=== PATIENT | female | born 2005 | race Caucasian/White ===

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

== ENCOUNTER 2023-02-24 15:54 | Outpatient (REF) | payer MEDICAID, SELFPAY ==
[2023-02-24 16:44] LABS: Anion Gap 7.4 mmol/L (3-11); BUN 15 mg/dL (7-18); CO2 25.6 mmol/L (21.0-32.0); CREATININE 0.9 mg/dL (0.55-1.02); Calcium 9.6 mg/dL (8.5-10.1); Chloride 104 mmol/L (98-107); Estimated GFR 94.44 (mL/min/1.73m2); Glucose 93 mg/dL (74-106); Sodium 137 mmol/L (136-145)
== END 2023-02-24 15:55 | disposition home or self-care (01) ==
LOC: NCHCN 15:54
PROVIDERS: PCP Nurse Practitioner Family; Visit Provider Nurse Practitioner Family
DX: Z51.81 Encounter for therapeutic drug level monitoring (principal)
CPT/HCPCS: 80048

== ENCOUNTER 2023-04-24 20:28 | Outpatient (CLI) | payer MEDICAID, SELFPAY ==
[2023-04-24 17:00] LABS: Anion Gap 8.9 mmol/L (3-11); BUN 20 mg/dL (7-18); CO2 26.1 mmol/L (21.0-32.0); CREATININE 0.8 mg/dL (0.55-1.02); Calcium 9.6 mg/dL (8.5-10.1); Chloride 103 mmol/L (98-107); Estimated GFR 108.11 (mL/min/1.73m2); Glucose 88 mg/dL (74-106); Potassium 3.7 mmol/L (3.5-5.1); Sodium 138 mmol/L (136-145)
== END 2023-04-24 20:29 | disposition home or self-care (01) ==
LOC: LBO 20:28
PROVIDERS: PCP Nurse Practitioner Family; Visit Provider Nurse Practitioner Family
DX: Z02.89 Encounter for other administrative examinations (principal); R79.89 Other specified abnormal findings of blood chemistry; L70.9 Acne, unspecified
CPT/HCPCS: 36415; 80048

== ENCOUNTER 2023-06-26 17:35 | Outpatient (CLI) | payer MEDICAID, SELFPAY ==
[2023-06-26 17:07] LABS: ALT 22 U/L (14-59); AST 20 U/L (15-37); Albumin 4.1 g/dL (3.4-5.0); Alkaline Phosphatase 69 U/L (46-116); Anion Gap 11.9 mmol/L (3-11); BUN 12 mg/dL (7-18); Bilirubin, Total 0.4 mg/dL (0.2-1.0); CO2 24.1 mmol/L (21.0-32.0); CREATININE 0.8 mg/dL (0.55-1.02); Calcium 9.9 mg/dL (8.5-10.1); Chloride 103 mmol/L (98-107); Estimated GFR 108.11 (mL/min/1.73m2); Glucose 97 mg/dL (74-106); Potassium 3.9 mmol/L (3.5-5.1); Sodium 139 mmol/L (136-145); TSH (W/Ref FT4) 2.63 uIU/mL (0.36-3.74); Total Protein 8.1 g/dL (6.4-8.2)
--- OUTSIDE RECORDS SUMMARY | 2023-06-26 17:39 | XMS_ITS | CCD ---
Author Name Unknown Address [address] [place] [id number] Organization Unknown Address [address] [place] [id number] Care Team Providers Care Clearing Distribution Clerk Name Role Phone CATHLEEN FONG Attending Physician [phone] Vital Signs Unknown or Not Available. Allergies Unknown or Not Available. Procedures Unknown or Not Available. History of Immunizations Unknown or Not Available. Problems Unknown or Not Available. Results Unknown or Not Available. Active Medications Unknown or Not Available. Medications Administered During Visit Unknown or Not Available. Encounters Encounter Diagnosis Diagnosis Code Start Date Pain in left knee [id number] 02/24/2023 Social History Unknown or Not Available. Patient Decision Aids Unknown or Not Available. Discharge Instructions You were admitted to [facility] on 02/24/2023 13:20 with a principal diagnosis of Pain in left knee You were discharged from [facility] on 03/03/2023 11:50 Should you have any questions prior to discharge, please contact a member of your healthcare team. If you have left the hospital and have any questions, please contact your primary care physician. Chief Complaint and Reason For Visit Unknown or Not Available. Function Status Unknown or Not Available. Plan of Care Unknown or Not Available. Referral/Transition of Care Unknown or Not Available.
[2023-06-26 22:16] LABS: FSH 5.3 mIU/mL (See Note); LH 20.1 mIU/mL (See Note)
== END 2023-06-26 17:36 | disposition home or self-care (01) ==
LOC: LBO 17:36
PROVIDERS: PCP Nurse Practitioner Family; Visit Provider Obstetrics & Gynecology
DX: N93.8 Other specified abnormal uterine and vaginal bleeding (principal)
CPT/HCPCS: 36415; 80053; 83001; 83002; 84443

== ENCOUNTER → 2023-07-03 01:20 | Outpatient (CLI) | payer MEDICAID, SELFPAY ==
--- NOTE | 2023-07-03 14:38 | DI.US_ITS ---
Exam(s) US PELVIS TRANSVAGINAL EXAM: US PELVIS TRANSVAGINAL CLINICAL HISTORY: anatomy,dysfunction uterine bleeding,n93.8 TECHNIQUE: Transabdominal and transvaginal imaging was performed using standard protocol. COMPARISON: No exams were available for comparison FINDINGS: Bladder is unremarkable. UTERUS: Anteverted. 5.9 x 3.7 x 4.7 cm Endometrium: 5 mm Myometrium: Unremarkable. Cervix: Small amount of fluid in the cervical canal consistent with current menses. OVARIES: Right: Cyst or mass: None. Left: Cyst or mass: None. DOPPLER: Color: Symmetric and uniform flow to both ovaries. No hyperemia. CUL-DE-SAC: Free fluid: None. IMPRESSION: 1. Normal-appearing uterus with endometrial stripe within normal limits. 2. Unremarkable bilateral ovaries. DATA REPOSITORY:
== END ==
PROVIDERS: PCP Nurse Practitioner Family; Visit Provider Obstetrics & Gynecology
DX: N93.8 Other specified abnormal uterine and vaginal bleeding (principal)
CPT/HCPCS: 76830; 76856

== ENCOUNTER 2024-01-08 08:17 | Outpatient (REF) | payer MEDICAID, SELFPAY ==
[2024-01-08 14:31] LABS: Abs Immature Grans 0.01 10^3/uL (0.0-0.06); Absolute Basophil Count 0.04 10^3/uL (0.0-0.2); Absolute Eosinophil Count 0.07 10^3/uL (0.0-0.7); Absolute Lymphocyte Count 1.93 10^3/uL (1.2-3.4); Absolute Monocyte Count 0.49 10^3/uL (0.1-0.8); Absolute Neutrophil Count 2.94 10^3/uL (1.2-6.7); Basophils % 0.7 %; Eosinophils % 1.3 %; HCT 39.8 % (36.0-46.0); HGB 12.9 g/dL (11.2-15.7); Immature Grans % 0.2 %; Lymphocytes % 35.2 %; MCH 28.7 pg (27.0-33.0); MCHC 32.4 % (32.0-36.0); MCV 89 fL (80-95); MPV 11.5 fL (8.0-11.0); Monocytes % 8.9 %; Neutrophils % 53.7 %; Platelet Count 313 10^3/uL (130-400); RBC 4.49 10^6/uL (3.93-5.22); RDW-SD 42.4 fL; WBC 5.48 10^3/uL (4.4-10.8)
[2024-01-08 17:03] LABS: TSH (W/Ref FT4) 1.89 uIU/mL (0.36-3.74)
== END 2024-01-08 08:18 | disposition home or self-care (01) ==
LOC: NCHCN 08:17
PROVIDERS: PCP Nurse Practitioner Family; Visit Provider Family Medicine
DX: R59.0 Localized enlarged lymph nodes (principal); Z13.29 Encounter for screening for other suspected endocrine disorder
CPT/HCPCS: 84443; 85025

== ENCOUNTER 2024-01-13 01:28 | Outpatient (CLI) | payer MEDICAID, SELFPAY ==
--- NOTE | 2024-01-13 | DI.US_ITS ---
Exam(s) US THYROID EXAM: US THYROID CLINICAL HISTORY: THYROID DISORDER SCREENING, Z13.29. TECHNIQUE: Ultrasound thyroid performed using standard protocol. COMPARISON: No exams were available for comparison FINDINGS: ISTHMUS: 1 mm RIGHT LOBE: Size: 4.1.0.9 x 1.8 cm Echogenicity: Normal. Vascularity: Normal. Nodules: 2 tiny colloid cysts. TR 1. LEFT LOBE: Size: 4.3 x 0.9 x 1.5 cm Echogenicity: Normal. Vascularity: Normal. Nodules: None. OTHER FINDINGS: No evidence of adenopathy or other neck mass. No visible soft tissue edema. IMPRESSION: Normal size thyroid gland. Incidental tiny colloid cysts. No follow-up recommended. DATA REPOSITORY:
== END 2024-01-13 01:48 ==
LOC: DI 01:28
PROVIDERS: PCP Nurse Practitioner Family; Visit Provider Family Medicine
DX: Z13.29 Encounter for screening for other suspected endocrine disorder (principal)
CPT/HCPCS: 76536

== ENCOUNTER 2024-09-07 10:10 | Outpatient (REF) | payer OTHER, SELFPAY ==
--- NOTE | 2024-09-07 09:40 | PAPFT_PTH ---
PATIENT: Mirlande Burrows LOC: [facility] U#:[id number] AGE/SX: 19/F ROOM: RE09/07/[address]: Martha Rubi DO : 2005 BED: DIS: 09/07/2024 SPEC #: [id number] RECD: 09/07/24 13:03 STATUS: DENISE REQ #: [id number] HENRI: 09/07/24 09:[address]: Martha Rubi DEPT: [facility] Cytology RECD BY: Lisa Harmon ENTERED: 09/07/24 13:03 SP TYPE: PAPFT OTHR DR: Desiree Malhotra Tissues: 1 - CX/ENDOCX FOR PAP SMEARS Procedures: PAP THIN PREP/[facility] Screening HPV DNA PROBE Comments: [id number] (HPV 16 & 18/45) (CHLAMYDIA/GC)
[2024-09-08 12:41] LABS: Chlamydia Result Negative (Negative); GC Result Negative (Negative)
== END 2024-09-07 10:11 | disposition home or self-care (01) ==
LOC: LBN 10:10
PROVIDERS: PCP Nurse Practitioner Family; Visit Provider Obstetrics & Gynecology
DX: Z12.4 Encounter for screening for malignant neoplasm of cervix (principal)
CPT/HCPCS: 87491; 87591; 88142; 87624

== ENCOUNTER 2024-12-21 04:50 | Outpatient (CLI) | payer OTHER, SELFPAY ==
[2024-12-21 14:27] LABS: Abs Immature Grans 0.03 10^3/uL (0.0-0.06); HCT 39.3 % (36.0-46.0); HGB 13.1 g/dL (11.2-15.7); Immature Grans % 0.3 %; MCH 28.9 pg (27.0-33.0); MCHC 33.3 % (32.0-36.0); MCV 87 fL (80-95); MPV 11.0 fL (8.0-11.0); Platelet Count 268 10^3/uL (130-400); RBC 4.53 10^6/uL (3.93-5.22); RDW 13.2 % (11.7-14.6); RDW-SD 42.4 fL; WBC 8.79 10^3/uL (4.4-10.8)
[2024-12-21 14:35] LABS: Hemoglobin A1C 4.8 % (<5.7)
[2024-12-21 14:58] LABS: ALT 19 U/L (14-59); AST 16 U/L (15-37); Albumin 3.6 g/dL (3.4-5.0); Alkaline Phosphatase 62 U/L (46-116); Anion Gap 7.2 mmol/L (3-11); BUN 8 mg/dL (7-18); Bilirubin, Total 0.3 mg/dL (0.2-1.0); CO2 26.8 mmol/L (21.0-32.0); Calcium 9.3 mg/dL (8.5-10.1); Chloride 102 mmol/L (98-107); Estimated GFR 136.76 (mL/min/1.73m2); Glucose 82 mg/dL (74-106); Potassium 3.6 mmol/L (3.5-5.1); Sodium 136 mmol/L (136-145); Total Protein 7.7 g/dL (6.4-8.2)
[2024-12-22 10:29] LABS: Hepatitis C Ab w Rflx HCV PCR Negative (Negative)
[2024-12-22 10:37] LABS: HIV-1/2 Ag & Ab Screen Negative (Negative)
[2024-12-23 09:51] LABS: Rubella IgG Ab (UVM) Positive (See Note)
[2024-12-24 14:54] LABS: Syphilis IgG w/Reflex Nonreactive (Nonreactive)
== END 2024-12-21 04:51 | disposition home or self-care (01) ==
LOC: LBO 04:50
PROVIDERS: PCP Nurse Practitioner Family; Visit Provider Advanced Practice Midwife
DX: Z34.91 Encounter for supervision of normal pregnancy, unspecified, first trimester
CPT/HCPCS: 36415; 80053; 86787; 86803; 86850; 86900; 86901; 87340; 87389; 83036; 85025; 86762; 86780

== ENCOUNTER 2024-12-21 13:47 | Outpatient (REF) | payer OTHER, SELFPAY ==
[2024-12-22 11:57] LABS: Chlamydia Result Negative (Negative); GC Result Negative (Negative)
== END 2024-12-21 13:48 | disposition home or self-care (01) ==
LOC: LBN 13:47
PROVIDERS: PCP Nurse Practitioner Family; Visit Provider Advanced Practice Midwife
DX: Z34.91 Encounter for supervision of normal pregnancy, unspecified, first trimester
CPT/HCPCS: 87491; 87591; 87086

== ENCOUNTER 2025-01-18 02:58 | Outpatient (CLI) | payer OTHER, SELFPAY ==
[2025-01-21 10:42] LABS: AFP 37.5 ng/mL; Prev Pregnancy w/NTD No; RECOMMENDED FOLLOW UP None.
== END 2025-01-18 02:59 | disposition home or self-care (01) ==
LOC: LBO 02:59
PROVIDERS: Advanced Practice Midwife; PCP Nurse Practitioner Family; Visit Provider Advanced Practice Midwife
DX: Z34.91 Encounter for supervision of normal pregnancy, unspecified, first trimester
CPT/HCPCS: 36415; 82105

== ENCOUNTER 2025-04-14 01:49 | Outpatient (CLI) | payer OTHER, SELFPAY ==
[2025-04-14 11:53] LABS: HCT 38.1 % (36.0-46.0); HGB 12.4 g/dL (11.2-15.7); MCH 28.4 pg (27.0-33.0); MCHC 32.5 % (32.0-36.0); MCV 87 fL (80-95); MPV 10.6 fL (8.0-11.0); Platelet Count 283 10^3/uL (130-400); RBC 4.36 10^6/uL (3.93-5.22); RDW 13.7 % (11.7-14.6); RDW-SD 43.8 fL; WBC 10.30 10^3/uL (4.4-10.8)
[2025-04-14 12:01] LABS: Hemoglobin A1C 5.0 % (<5.7)
[2025-04-14 12:03] LABS: Glucose,1 Hr (Glucola) 88 mg/dL (80-140)
[2025-04-14 12:15] LABS: Uric Acid 3.0 mg/dL (3.1-7.8)
[2025-04-14 12:17] LABS: Prot/Crea Ur Ratio 0.20 mg/mg Cr
[2025-04-14 12:18] LABS: ALT 14 U/L (10-49); AST 17 U/L (<34); Albumin 4.0 g/dL (3.4-5.0); Alkaline Phosphatase 93 U/L (46-116); Anion Gap 7.4 mmol/L (3-11); BUN 8 mg/dL (9-23); Bilirubin, Total 0.40 mg/dL (0.2-1.2); CO2 26.6 mmol/L (20.0-31.0); Calcium 9.0 mg/dL (8.3-10.6); Chloride 104 mmol/L (98-107); Glucose 88 mg/dL (74-106); Potassium 3.4 mmol/L (3.5-5.1); Sodium 138 mmol/L (136-145); Total Protein 7.0 g/dL (5.7-8.2)
== END 2025-04-14 01:50 | disposition home or self-care (01) ==
LOC: LBO 01:49
PROVIDERS: PCP Nurse Practitioner Family; Visit Provider Advanced Practice Midwife
DX: Z34.92 Encounter for supervision of normal pregnancy, unspecified, second trimester (principal); E28.2 Polycystic ovarian syndrome; I10 Essential (primary) hypertension
CPT/HCPCS: 36415; 80053; 82950; 85027; 82565; 83036; 84156; 84550

== ENCOUNTER → 2025-05-10 00:27 | Outpatient (CLI) | payer OTHER, SELFPAY ==
--- NOTE | 2025-05-10 06:45 | DI.US_ITS ---
Exam(s) US OB DEAN WEIGHT EXAM: US OB DEAN WEIGHT CLINICAL HISTORY: growth DEAN,POLYCYSTIC OVARIAN SYNDROME,. TECHNIQUE: Transabdominal obstetrical ultrasound performed. COMPARISON: US US OB 2-3 TRIMESTER from 02/21/2025 FINDINGS: Number of fetuses: 1 position: CEPHALIC Placental location: There is a grade 2 anterior placenta. No evidence of previa. BIOMETRIC DATA: BPD: 8.43cm, 33weeks 6days HC: 31.77cm, 35weeks 5days AC: 28.92cm, 33weeks FL: 6.32cm, 32weeks 5days EFW: 2,147.74g, 4lb 12.5oz, 82.1% Composite Age: 33weeks 6days BLANCA: 06/22/2025 Heart Rate: 133bpm Amniotic fluid index: 17.82cm. The largest pocket measures 6.7 cm. IMPRESSION: 1. Single live intrauterine gestation as above. 2. Estimated weight is 2148gms. This is the 82nd percentile. 3. Amniotic fluid index is 17.8 cm. The largest pocket measures 6.7 cm. DATA REPOSITORY:
== END ==
LOC: DI 00:27
PROVIDERS: PCP Nurse Practitioner Family; Visit Provider Advanced Practice Midwife
DX: Z3A.31 31 weeks gestation of pregnancy (principal); E28.2 Polycystic ovarian syndrome
CPT/HCPCS: 76816